=== PATIENT | female | born 1975 | race Hispanic/Latino ===

== ENCOUNTER 2023-07-29 16:23 | Emergency (ER) | payer SELFPAY ==
[~2023-07-29] VITALS: Ht 160 cm; Wt 56.7 kg
[2023-07-29] MEDS ORDERED: KETOROLAC TROMETHAMINE 60 MG/2 ML VIAL IM ONE (17:00)
[2023-07-29] MEDS ORDERED: DIAZEPAM 5 MG TAB PO PRN (17:00)
[2023-07-29 18:40] VITALS: BP 101/59; PULSE 66; RESP 17; TEMP 98.3; O2SAT 99
== END 2023-07-29 19:05 | disposition home or self-care (01) ==
LOC: ER 16:45
DX: R51.9 Headache, unspecified (principal); F41.9 Anxiety disorder, unspecified
CPT/HCPCS: 70450; 81025; 99283; J1885